=== PATIENT | male | born 1970 | race Two or more races ===

== ENCOUNTER 2024-02-23 15:57 | Emergency (ER) | payer MEDICAID ==
[~2024-02-23] VITALS: Ht 185.4 cm; Wt 106.5 kg
[~2024-02-23 15:57] MED LIST: ASPI81CH59 PO; ATOR-47 PO; CEPH250C PO; CHOL1TAB42 PO; CLIN1CAP70 PO; CLOP75TA70 PO; EMPA1TAB3 PO; FENO160T PO; FERR-7 PO; FUR20T PO; GABA-1250 PO; GLIP10TA21 PO; HYDR-4072 PO; INSU100I54 SC; INSU1INJ19 SC; ISOS1TAB28 PO; MONT-8 PO; MULT-1056 PO; NIFE1TAB31 PO; POTA1TAB4 PO; ROPI5TAB20 PO; SEMA1INJ2 SC; TAMS0.4C36 PO
[2024-02-23 17:35] LABS: Basophils # (auto) 0.1 10 ^3/uL (0-0.2); Basophils % (auto) 0.7 % (0.0-2.0); Eosinophils # (auto) 0.1 10 ^3/uL (0-0.8); Eosinophils % (auto) 0.8 % (0.0-7.0); Hematocrit 41.1 % (41.0-53.0); Hemoglobin 13.9 g/dL (13.5-17.5); Lymphocytes # (auto) 1.2 10 ^3/uL (0.4-5.4); Lymphocytes % (auto) 16.2 % (10.0-50.0); Mean Corpuscular Hemoglobin 27.6 pg (28.0-32.0); Mean Corpuscular Hgb Conc. 33.9 g/dL (32.0-36.0); Mean Corpuscular Volume 81.5 fL (80.0-100.0); Monocytes # (auto) 0.4 10 ^3/uL (0-1.3); Monocytes % (auto) 4.9 % (0.0-12.0); Neutrophils # (auto) 5.8 10 ^3/uL (1.6-8.6); Neutrophils % (auto) 77.4 % (37.0-80.0); Nucleated Red Blood Cells % 0.3 %; Red Blood Cells 5.05 10^6/uL (4.5-5.90); Red Cell Distribution Width 13.5 % (11.8-14.3); White Blood Cell 7.5 10^3/uL (4.4-10.8)
[2024-02-23 17:49] LABS: Alanine Aminotransferase 18 U/L (7-40); Albumin 4.2 g/dL (3.2-4.8); Alkaline Phosphatase 85 U/L (46-116); Anion Gap 5 (5-15); Aspartate Aminotransferase 11 U/L (13-40); BUN/Creatinine Ratio 9.2 (10.0-20.0); Bilirubin, Total 0.6 mg/dL (0.2-1.0); Blood Urea Nitrogen 17 mg/dL (9-23); Calcium 9.5 mg/dL (8.5-10.1); Carbon Dioxide 26 mmol/L (20-30); Chloride 108 mmol/L (98-107); Glucose 357 mg/dL (74-106); Sodium 139 mmol/L (136-145); Total Protein 6.8 g/dL (5.7-8.2)
[2024-02-23] MEDS: INSULIN LISPRO (HUMAN) 100 UNITS/ML ML SC ONE (18:45)
[2024-02-23] MEDS ORDERED: BACDST PO (19:35)
[2024-02-23] MEDS ORDERED: IBUP-1455 PO (19:35)
[2024-02-23] MEDS: IBUPROFEN 800 MG TAB PO ONE (20:25)
[2024-02-23] MEDS: SULFAMETHOX W/TRIMETH(800/160MG) DS TAB PO ONE (20:25)
[2024-02-23] MEDS: SODIUM CHLORIDE 0.9% 1,000 ML IV ONE (20:42)
[2024-02-23 20:45] VITALS: BP 179/84; PULSE 68; RESP 18; TEMP 98.3; O2SAT 98
== END 2024-02-23 21:55 | disposition home or self-care (01) ==
LOC: ER 15:58
DX: E11.69 Type 2 diabetes mellitus with other specified complication (principal); L08.89 Other specified local infections of the skin and subcutaneous tissue; I10 Essential (primary) hypertension; E66.01 Morbid (severe) obesity due to excess calories; Z68.31 Body mass index [BMI] 31.0-31.9, adult; Z79.899 Other long term (current) drug therapy; Z79.4 Long term (current) use of insulin
CPT/HCPCS: 36415; 73700; 80053; 82962; 83605; 85025; 96360; 99284; J7030